=== PATIENT | male | born 1935 | race African-American/Black ===

== ENCOUNTER 2017-06-03 22:36 | Emergency (ER) | payer OTHER ==
[~2017-06-03] VITALS: Ht 170.2 cm; Wt 56.0 kg
[~2017-06-03 22:36] MED LIST: ALLO300T2 PO; ASPI-1159 PO; CHOL400T15 PO; CLOP75TA33 PO; DOCU-150 PO; DONE5TAB33 PO; FEXO180T87 PO; FINA5TAB11 PO; MULT-1204 PO; TERA2CAP53 PO; TRAV2.5D EACHEYE
[2017-06-04 00:06] LABS: HEMATOCRIT. 34.6 % (42.0-52.0); HEMOGLOBIN. 10.9 g/dL (14.0-18.0); MEAN CORPUSCULAR HEMOGLOBIN 24.2 pg (28.0-32.0); MEAN CORPUSCULAR VOLUME 77.1 fL (80.0-94.0); PLATELET 210 x1000/uL (130-400); RED BLOOD CELL COUNT 4.48 mill/uL (4.7-6.1); RED CELL DISTRIBUTION WIDTH 21.5 % (11.6-14.6)
[2017-06-04 00:16] LABS: INR 1.1; PARTIAL THROMBOPLASTIN TIME 24.9 sec (24.0-34.0); PROTHROMBIN TIME 11.4 sec
[2017-06-04 00:29] LABS: CARBON DIOXIDE 25 mEq/L (21-32); CHLORIDE 108 mEq/L (98-107)
[2017-06-04 01:10] LABS: ATYPICAL LYMPHOCYTES 1; PLATELET ESTIMATE NORMAL
[2017-06-04 04:57] VITALS: BP 130/86
== END 2017-06-04 05:13 | disposition short-term general hospital (02) ==
LOC: ER 22:45
DX: R79.89 Other specified abnormal findings of blood chemistry (principal); R07.9 Chest pain, unspecified; F03.90 Unspecified dementia, unspecified severity, without behavioral disturbance, psychotic disturbance, mood disturbance, and anxiety; I10 Essential (primary) hypertension; Z88.8 Allergy status to other drugs, medicaments and biological substances; Z86.73 Personal history of transient ischemic attack (TIA), and cerebral infarction without residual deficits
CPT/HCPCS: 36415; 71010; 80053; 83690; 84484; 85025; 85610; 85730; 93005; 99285